=== PATIENT | male | born 1975 | race Caucasian/White ===

== ENCOUNTER 2017-12-01 08:33 | Emergency (ER) | payer OTHER ==
[~2017-12-01] VITALS: Ht 175.3 cm; Wt 69.7 kg
[2017-12-01 09:30] LABS: HEMATOCRIT 43.1 % (38.0-50.0); HEMOGLOBIN 15.5 G/DL (12.5-16.6); MCH 30.6 PG (29.0-34.0); PLATELET COUNT 191 K/uL (156-360); RBC DIS.WIDTH-CV 12.6 % (11.8-14.6); RBC DIS.WIDTH-SD 38.7 % (39-53); RED BLOOD COUNT 5.07 M/uL (4.00-5.50); WHITE BLOOD COUNT 9.7 K/uL (4.1-10.2)
[2017-12-01 09:41] LABS: CHLORIDE 107 mEq/L (99-109); POTASSIUM 3.8 mEq/L (3.7-5.4); SODIUM 142 mEq/L (136-147)
[2017-12-01 09:43] LABS: GLUCOSE 108 mg/dL (70-99)
[2017-12-01 09:46] LABS: CREATININE 0.8 mg/dL (0.6-1.3); GFR ESTIMATE (CALCULATED) > 59 mL/min/ (58.99-99999)
[2017-12-01 09:47] LABS: UREA NITROGEN (BUN) 16 mg/dL (9-23)
[2017-12-01 11:37] VITALS: BP 123/69
== END 2017-12-01 11:41 | disposition home or self-care (01) ==
LOC: EME 08:33
DX: K64.9 Unspecified hemorrhoids (principal); R55 Syncope and collapse; I44.4 Left anterior fascicular block; F17.200 Nicotine dependence, unspecified, uncomplicated
CPT/HCPCS: 80048; 85027; 86850; 86900; 86901; 93005; 99281; 99285